=== PATIENT | male | born 1965 | race Caucasian/White ===

== ENCOUNTER 2020-12-22 21:16 | Observation (INO) ==
[2020-12-22] MEDS ORDERED: NS 1000 ML 1,000 ML IV STA (22:12)
--- NOTE | 2020-12-22 22:12 | DR.WEAKNES ---
HPI Time Seen Time Seen by Provider: 12/22/20 22:00 Primary Care Physician Primary Care Physician: Leydi Banks HPI Comment HPI Comment: DAUGHTER STATES PATIENT WITH A HISTORY OF CORONARY ARTERY DISEASE, COPD, HYPERTENSION COMPLAINS OF CONFUSION, WEAKNESS, UNSTEADY GAIT AND VISUAL CHANGES FOR 1-2 WEEKS. DENIES HEADACHE, SLURRED SPEECH, CHEST PAIN, COUGH FEVER, CHILLS, ARTHRALGIA. Complaints Chief Complaint Doctors Comments: WEAKNESS, CONFUSION, UNSTEADY GAIT Chief Complaint:: Confusion, weakness. States for the last 2 weeks he has to cover his Lt eye so that he can see normal. Pending pacemaker placement. Reviewed Nurses Notes Reviewed: Yes Source History Provided: Patient Mode of Arrival Mode of Arrival: Ambulatory Timing Onset of Chief Complaint: 12/08/20 Since onset, symptoms are:: Unchanged Symptom Onset: Unknown Onset of Symptoms Start Date: 12/10/20 Duration Duration: Constant Context Symptoms: Weakness Stroke Symptoms: Ataxia and Acute confusion (1-2 WEEKS) Location Weakness Location: Generalized PMH PMH Past Medical History: Yes Past Medical History: Cirrhosis and COPD Past Medical History Comment: cardiac issues, unsure Past Surgical History: No Family History History of Family Medical Conditions: Yes Family Medical History: [place] Social History Alcohol Use: DAILY Lives Where: Home Infectious screening Have you traveled outside the country in the last 6 months?: No Isolation: Standard ROS Review of Systems Constitutional: See HPI Eyes: See HPI and Other (VISUAL CHANGES) ENTM: No Symptoms Reported Respiratoy: No Symptoms Reported Cardiovascular: No Symptoms Reported Gastrointestinal/Abdominal: No Symptoms Reported Genitourinary: No Symptoms Reported Neurological: Weakness and Problems Walking Musculoskeletal: No Symptoms Reported Integumentary: No Symptoms Reported Hematologic/Lymphatic: No Symptoms Reported Endocrine: No Symptoms Reported Psychiatric: No Symptoms Reported All Other Systems: Reviewed and Negative PE Vital Signs Vitals: Temperature 97.9 F Pulse Rate [Apical] 85 Pulse Rate 114 Respiratory Rate 22 Blood Pressure [Left Arm] 92/63 Blood Pressure 104/66 O2 Sat by Pulse Oximetry 100 General Limitations: No Limitations General Appearance: Alert (TO PERSON AND PLACE, CONFUSION AT TIMES CONCERNING HISTORY OF EVENTS) and In No Apparent Distress Head Head Exam: Normal Inspection, Atraumatic and Normocephalic Eyes Eye exam: Normal Appearance, PERRL and EOMI Eyelids: Normal Inspection: Bilateral ENT ENT Exam: Normal Exam and Normal Oropharynx Mouth Exam: Normal Inspection Throat Exam: Normal Inspection Chest Chest Inspection: Normal Inspection and Symmetric Chest Wall Rise Respiratory Respiratory Exam: Normal Lung Sounds Bilat Respiratory Exam: Bilateral: Clear to Auscultation Cardiovascular Cardiovascular Exam: Normal Rhythm and Tachycardia Abdominal Exam Abdominal Exam: Normal Inspection and Normal Bowel Sounds Extremities Extremities Exam: Normal Inspection and Full ROM Neurologic Neurological Exam: Alert, Oriented X3, CN II-XII Intact and Other (ANTALGLIC GAIT, INTENTIONAL TREMOR, UPON FINGER TO NOSE AND HEEL TO RAMOS, NIH STROKE SCALE-1) Cranial Nerve Exam: EOM Function (II, III, IV, ): Normal, Facial Sensation (V): Normal, Facial Palsy (VII): Normal, Gag reflex (XI): Normal and Spinal Accessory Function (XI): Normal Cerebellar Function: Ataxic Gait Motor Strength - LUE: 4/5 Motor Strength - RUE: 4/5 Motor Strength - LLE: 4/5 Motor Strength - RLE: 4/5 Psychiatric Psychiatric Exam: Normal Affect and Normal Mood MDM Differential Diagnosis Differential Diagnosis: CVA and TIA COURSE Treatment Treatment: IV NORMAL SALINE 200ML/HR Consultation Call Returned: 00:52 Consultation Comments: DISCUSSED WITH DR LICEA FOR ADMIT TO OBSERVATION ROR Labs Reviewed Laboratory Results Reviewed?: Yes Result Diagrams: 12/22/20 23:11 12/22/20 23:11 Laboratory: WBC 5.9 X10^3/uL (3.6-10.0) 12/22/20 23:11 RBC 4.37 X10^6/uL (4.7-6.0) L 12/22/20 23:11 Hgb 15.0 g/dL (13.5-18.0) 12/22/20 23:11 Hct 43.6 % (42.0-54.0) 12/22/20 23:11 MCV 99.9 fL (80.0-100.0) 12/22/20 23:11 MCH 34.4 pg (27.0-34.0) H 12/22/20 23:11 MCHC 34.5 g/dL (33.0-35.0) 12/22/20 23:11 RDW 17.2 % (11.6-16.5) H 12/22/20 23:11 Plt Count 82 X10^3/uL (150.0-450.0) L 12/22/20 23:11 Plt Count Comment Decreased (ADEQUATE) 12/22/20 23:11 MPV 8.4 fL (7.4-11.0) 12/22/20 23:11 Neut % (Auto) 59.4 % (42.0-75.0) 12/22/20 23:11 Lymph % (Auto) 27.0 % (21.0-51.0) 12/22/20 23:11 Elk % (Auto) 10.1 % (0.0-13.0) 12/22/20 23:11 Eos % (Auto) 2.8 % (0.9-2.9) 12/22/20 23:11 Baso % (Auto) 0.7 % (0.2-1.0) 12/22/20 23:11 Neut # (Auto) 3.5 x10^3/uL (2.2-4.8) 12/22/20 23:11 Lymph # (Auto) 1.6 X10^3/uL (1.3-2.9) 12/22/20 23:11 Elk # (Auto) 0.6 x10^3/uL (0.3-0.8) 12/22/20 23:11 Eos # (Auto) 0.2 x10^3/uL (0.0-0.2) 12/22/20 23:11 Baso # (Auto) 0.0 X10^3/uL (0.0-0.1) 12/22/20 23:11 Absolute Nucleated RBC 0.2 /100WBC 12/22/20 23:11 Plt Morphology Comment Normal (NORMAL) 12/22/20 23:11 RBC Morphology Normal (NORMAL) 12/22/20 23:11 PT 12.5 SECONDS (11.8-14.3) 12/22/20 23:11 INR Target Range - 12/22/20 23:11 INR 0.98 (0.8-1.3) 12/22/20 23:11 Sodium 136 mmol/L (136-145) 12/22/20 23:11 Corrected Sodium TNP 12/22/20 23:11 Potassium 3.4 mmol/L (3.5-5.1) L 12/22/20 23:11 Chloride 98 mmol/L (98-107) 12/22/20 23:11 Carbon Dioxide 29.3 mmol/L (21-32) 12/22/20 23:11 BUN 23 mg/dL (7-18) H 12/22/20 23:11 Creatinine 1.10 mg/dL (0.70-1.30) 12/22/20 23:11 Est GFR (MDRD) Af Amer > 60 (>60) 12/22/20 23:11 Est GFR (MDRD) Non-Af > 60 (>60) 12/22/20 23:11 Glucose 90 mg/dL (65-99) 12/22/20 23:11 Calcium 9.3 mg/dL (8.5-10.1) 12/22/20 23:11 Corrected Calcium 9.9 mg/dL (8.5-10.1) 12/22/20 23:11 Total Bilirubin 1.10 mg/dL (0.2-1.0) H 12/22/20 23:11 AST 171 Units/L (15-37) H 12/22/20 23:11 ALT 121 Units/L (12-78) H 12/22/20 23:11 Alkaline Phosphatase 105 Units/L (46-116) 12/22/20 23:11 Troponin I 0.14 ng/mL (0-1.5) 12/22/20 23:11 Total Protein 6.9 g/dL (6.4-8.2) 12/22/20 23:11 Albumin 3.3 g/dL (3.4-5.0) L 12/22/20 23:11 Globulin 3.6 g/dL (2.5-4.5) 12/22/20 23:11 Albumin/Globulin Ratio 0.9 Ratio (1.1-2.1) L 12/22/20 23:11 Specimen Type Clean catch urine 12/23/20 00: Urine Color Giselle (YELLOW) 12/23/20 00: Urine Appearance Clear (CLEAR) 12/23/20 00: Urine pH 6.5 (5.0 - 8.0) 12/23/20 00:01 Ur Specific [place] 1.015 (1.000-1.030) 12/23/20 00:01 Urine Protein 1+ (NEGATIVE) 12/23/20 00: Urine Glucose (UA) Negative (NEGATIVE) 12/23/20 00:01 Urine Ketones Negative (NEGATIVE) 12/23/20 00:01 Urine Occult Blood Negative (NEGATIVE) 12/23/20 00:01 Urine Nitrite Negative (NEGATIVE) 12/23/20 00:01 Urine Bilirubin 1+ (NEGATIVE) 12/23/20 00:01 Urine Urobilinogen 2+ (NORMAL) 12/23/20 00:01 Ur Leukocyte Esterase Negative (NEGATIVE) 12/23/20 00:01 Urine RBC 0-2 /HPF (0-3) 12/23/20 00:01 Urine WBC None seen /HPF (0-5) 12/23/20 00:01 Ur Squamous Epith Cells Rare /HPF (NEGATIVE) 12/23/20 00:01 Urine Bacteria 1+ /HPF (NEGATIVE) 12/23/20 00:01 Urine Sperm Few /HPF (NEGATIVE) 12/23/20 00:01 Ur Culture Indicated? No/not indicated 12/23/20 00:01 SARS-CoV-2 (PCR) Negative (NEGATIVE) 12/22/20 22:56 Influenza Type A (PCR) Negative (NEGATIVE) 12/22/20 22:56 Influenza Type B (PCR) Negative (NEGATIVE) 12/22/20 22:56 RSV (PCR) Negative (NEGATIVE) 12/22/20 22:56 XRAY XRAY Interpreted by: Radiologist (HEAD CT SCAN NO ACUTE INTRACRANIAL AB NORMALITY) X-ray Results: PORTABLE CHEST XRAY- NO ACUTE PROCESS EKG Rate: 89 Rhythm: NSR ST: Nonsp (T-WAVE INVERSION INFERIOR LATERALLY) Opioid Opioid Risk Tool Age (Obi box if 16-45): No History of Preadolescent Sexual Abuse: No Total: 0 Total Score Risk Category: Low Risk Copyright: González SUTHERLAND predicting aberrant behaviors Diagnosis Discharge Problem: Transient ischemic attack, Altered mental status
[2020-12-22] MEDS ORDERED: NS 1000 ML 0 ML ONE (22:31)
[2020-12-22] MEDS ORDERED: NS 1000 ML 1,000 ML ONE (22:41)
--- NOTE | 2020-12-22 22:59 | CT ---
HISTORYConfusion, weakness. States for the last 2 weeks he has to cover his Lt eye so that he can see normal. Pending pacemaker placement.STUDYBRAIN W/O CONCOMPARISONApril 2019TECHNIQUEAxial non-contrast images of the head were obtained with coronal and sagittal reformats provided.Radiation dose: 1329.50 mGy-cm total DLPFINDINGSMild periventricular chronic microvascular disease.No abnormal areas of acute attenuation in the brain parenchyma.Alston-white differentiation remains intact.No intracranial, extra-axial, fluid collection.No hemorrhage.No mass, mass effect or midline shift.Age related brain parenchymal global atrophy.No ventriculomegaly.No acute fracture.Sinuses are well aerated.Mastoid air cells are well aerated.Globes and intra-orbital contents are unremarkable.IMPRESSIONNo acute intracranial abnormality identified.Electronically signed by: Tacos Olson (Dec 22, 2020 22:57:29)
--- NOTE | 2020-12-22 23:00 | RAD ---
HISTORYConfusion, weakness. States for the last 2 weeks he has to cover his Lt eye so that he can see normal. Pending pacemaker placement.STUDYCHEST, 1 VIEWCOMPARISONMay 2020TECHNIQUEChest radiographic imaging, AP portable projection, 1 imageFINDINGSNo cardiomegaly.No focal airspace disease.No pleural effusion.No pneumothorax.No acute osseous abnormality.IMPRESSIONNo imaging findings of acute cardiopulmonary disease.Electronically signed by: Tacos Olson (Dec 22, 2020 22:58:10)
[2020-12-22 23:19] LABS: BASOPHILS % (AUTO) 0.7 % (0.2-1.0); EOSINOPHILS # (AUTO) 0.2 x10^3/uL (0.0-0.2); EOSINOPHILS % (AUTO) 2.8 % (0.9-2.9); HEMATOCRIT 43.6 % (42.0-54.0); LYMPHOCYTES # (AUTO) 1.6 X10^3/uL (1.3-2.9); MEAN CORPUSCULAR HEMOGLOBIN 34.4 pg (27.0-34.0); MEAN CORPUSCULAR HGB CONC 34.5 g/dL (33.0-35.0); MEAN CORPUSCULAR VOLUME 99.9 fL (80.0-100.0); MEAN PLATELET VOLUME 8.4 fL (7.4-11.0); MONOCYTES # (AUTO) 0.6 x10^3/uL (0.3-0.8); MONOCYTES % (AUTO) 10.1 % (0.0-13.0); NEUTROPHILS # (AUTO) 3.5 x10^3/uL (2.2-4.8); NEUTROPHILS % (AUTO) 59.4 % (42.0-75.0); PLATELET COUNT 82 X10^3/uL (150.0-450.0); RED BLOOD COUNT 4.37 X10^6/uL (4.7-6.0); RED CELL DISTRIBUTION WIDTH 17.2 % (11.6-16.5); WHITE BLOOD COUNT 5.9 X10^3/uL (3.6-10.0)
[2020-12-22 23:34] LABS: ALANINE AMINOTRANSFERASE 121 Units/L (12-78); ALBUMIN 3.3 g/dL (3.4-5.0); ALKALINE PHOSPHATASE 105 Units/L (46-116); ASPARTATE AMINO TRANSFERASE 171 Units/L (15-37); BLOOD UREA NITROGEN 23 mg/dL (7-18); CALCIUM 9.3 mg/dL (8.5-10.1); CARBON DIOXIDE 29.3 mmol/L (21-32); CHLORIDE 98 mmol/L (98-107); COR CA(FOR HYPOALB) 9.9 mg/dL (8.5-10.1); SODIUM 136 mmol/L (136-145); TOTAL PROTEIN 6.9 g/dL (6.4-8.2); TROPONIN I 0.14 ng/mL (0-1.5); eGFR NON BLACK RACES > 60 (>60)
[2020-12-22 23:52] LABS: PLATELET MORPHOLOGY COMMENT NORMAL (NORMAL)
[2020-12-23 00:11] LABS: BILIRUBIN,URINE 1+ (NEGATIVE); BLOOD/HEMOGLOBIN,URINE NEGATIVE (NEGATIVE); GLUCOSE, URINE NEGATIVE (NEGATIVE); KETONES,URINE NEGATIVE (NEGATIVE); LEUKOCYTE ESTERASE ,URINE NEGATIVE (NEGATIVE); NITRITES,URINE NEGATIVE (NEGATIVE); PH,URINE 6.5 (5.0 - 8.0); PROTEIN,URINE 1+ (NEGATIVE); UROBILINOGEN,URINE 2+ (NORMAL)
[2020-12-23 00:22] LABS: APPEARANCE,URINE CLEAR (CLEAR); COLOR,URINE AMBER (YELLOW); RBC,URINE 0-2 /HPF (0-3)
[2020-12-23 00:23] LABS: BACTERIA,URINE 1+ /HPF (NEGATIVE); SPERM,URINE FEW /HPF (NEGATIVE); SQUAMOUS EPITHELIAL CELL,UR RARE /HPF (NEGATIVE)
[2020-12-23] MEDS ORDERED: ZOFRAN INJ 4 MG VIAL IVP PRN (01:14)
[2020-12-23] MEDS ORDERED: TYLENOL 325 MG TAB PO PRN (01:14)
[2020-12-23] MEDS ORDERED: POTASSIUM CHLORIDE LIQ 20 MEQ UDC PO PRN (03:06)
[2020-12-23] MEDS ORDERED: POTASSIUM CHL 40 MEQ/NS 0.45% 500 ML IV PRN (03:06)
[2020-12-23] MEDS ORDERED: KLOR-CON PO PRN (03:06)
[2020-12-23] MEDS ORDERED: MICRO K EXTEN CAP 10 MEQ PO PRN (03:06)
[2020-12-23] MEDS ORDERED: POTASSIUM CHL 60 MEQ/NS 0.45% 500 ML IV PRN (03:06)
[2020-12-23] MEDS ORDERED: MAGNESIUM SULFATE 1 GRAM/100 mL PREMIX 2 G/200 ML BAG IV ONE (03:24)
[2020-12-23] MEDS ORDERED: K-DUR TAB 20 MEQ PO ONE (03:24)
[2020-12-23] MEDS: K-DUR TAB 20 MEQ PO PRN (03:30)
[2020-12-23] MEDS: MAGNESIUM SULFATE 1 GRAM/100 mL PREMIX 1 GM/100 ML BAG IV PRN ×4 (03:30→06:30)
[2020-12-23] MEDS: NS 1000 ML 1,000 ML IV SCH ×3 (04:32→21:05)
[2020-12-23 06:13] LABS: HEMOGLOBIN 12.8 g/dL (13.5-18.0); WHITE BLOOD COUNT 4.4 X10^3/uL (3.6-10.0)
[2020-12-23 06:34] LABS: BASOPHILS # (AUTO) 0.1 X10^3/uL (0.0-0.1); BASOPHILS % (AUTO) 1.9 % (0.2-1.0); EOSINOPHILS # (AUTO) 0.1 x10^3/uL (0.0-0.2); EOSINOPHILS % (AUTO) 3.3 % (0.9-2.9); HEMATOCRIT 36.1 % (42.0-54.0); LYMPHOCYTES # (AUTO) 1.2 X10^3/uL (1.3-2.9); LYMPHOCYTES % (AUTO) 27.7 % (21.0-51.0); MEAN CORPUSCULAR HEMOGLOBIN 34.9 pg (27.0-34.0); MEAN CORPUSCULAR HGB CONC 35.4 g/dL (33.0-35.0); MEAN CORPUSCULAR VOLUME 98.7 fL (80.0-100.0); MEAN PLATELET VOLUME 8.5 fL (7.4-11.0); MONOCYTES # (AUTO) 0.4 x10^3/uL (0.3-0.8); MONOCYTES % (AUTO) 9.1 % (0.0-13.0); NEUTROPHILS # (AUTO) 2.6 x10^3/uL (2.2-4.8); PLATELET COUNT 134 X10^3/uL (150.0-450.0); RED BLOOD COUNT 3.66 X10^6/uL (4.7-6.0)
[2020-12-23 06:35] LABS: ALANINE AMINOTRANSFERASE 122 Units/L (12-78); ALKALINE PHOSPHATASE 91 Units/L (46-116); ASPARTATE AMINO TRANSFERASE 162 Units/L (15-37); BLOOD UREA NITROGEN 20 mg/dL (7-18); CALCIUM 9.1 mg/dL (8.5-10.1); CARBON DIOXIDE 30.9 mmol/L (21-32); CHLORIDE 99 mmol/L (98-107); COR CA(FOR HYPOALB) 9.9 mg/dL (8.5-10.1); CREATININE 1.02 mg/dL (0.70-1.30); SODIUM 135 mmol/L (136-145); TOTAL PROTEIN 6.3 g/dL (6.4-8.2); eGFR NON BLACK RACES > 60 (>60)
[2020-12-23 08:56] VITALS: BMI 17.7
[2020-12-23] MEDS ORDERED: MAGNESIUM SULFATE 1 GRAM/100 mL PREMIX 1 G/100 ML BAG IV SCH (10:07)
[2020-12-23] MEDS: ALDACTONE TAB 25 MG PO SCH (10:19)
[2020-12-23] MEDS: ASPIRIN EC 81 MG PO SCH (10:19)
[2020-12-23] MEDS: TOPROL XL PO SCH (10:19)
[2020-12-23] MEDS: PriLOSEC PO SCH (10:20)
[2020-12-23] MEDS: CRESTOR TAB 10 MG PO SCH (10:20)
[2020-12-23] MEDS: PLAVIX PO SCH (10:26)
[2020-12-23] MEDS: K-RIDER 10 MEQ/NS 100 ML 10 MEQ/100 ML BAG IV PRN ×3 (11:24→15:24)
[2020-12-23] MEDS: THIAMINE HCL INJ IVP SCH ×2 (14:20→20:52)
--- NOTE | 2020-12-23 14:58 | US ---
HISTORYTIA, AMS, ELEVATED TRANSAMINASESSTUDYLIVERCOMPARISONNone r.br.br.br the right upper quadrant were obtained.FINDINGSThe liver is echogenic but normal in size with a sagittal measurement of 14.7 cm.. No focal intraparenchymal mass or intrahepatic biliary ductal dilatation can be observed. T normal flow is seen in the hepatic veins the IVC the main portal vein and normal flow is also identified in the hepatic artery. He gallbladder fails to demonstrate evidence for cholelithiasis or layering sludge. The gallbladder however is contracted. The common bile duct is unremarkable measuring 3.6 mm. No pericholecystic fluid or gallbladder wall thickening can be observed .The right kidney appears normal in size without focal parenchymal mass or nephrolithiasis. The right kidney measurers 9.6 cm in length by 4.4 cm AP with a cortical thickness of 1.4 cm a transverse measurement of 4.5 cm with normal vascular flow and a resistance index of 0.74. . No hydronephrosis or perirenal fluid can be observed. The pancreatic head and body are poorly imaged. No mass or enlargement is observed. The tail the pancreas is obscured by overlying bowel gas.IMPRESSIONThe liver is echogenic but otherwise normal.The gallbladder is contracted but no stones are observed. The common duct is normal measuring 3.6 mm.The right kidney is normal.The pancreas is poorly imaged due to overlying bowel gas.Electronically signed by: DANIELLE MARTEL (Dec 23, 2020 14:56:42)
[2020-12-24] MEDS: NS 1000 ML 1,000 ML IV SCH ×2 (01:12→06:03)
[2020-12-24 06:07] LABS: BASOPHILS # (AUTO) 0.1 X10^3/uL (0.0-0.1); LYMPHOCYTES # (AUTO) 1.1 X10^3/uL (1.3-2.9); MEAN PLATELET VOLUME 8.1 fL (7.4-11.0); MONOCYTES # (AUTO) 0.4 x10^3/uL (0.3-0.8); NEUTROPHILS % (AUTO) 63.1 % (42.0-75.0); PLATELET COUNT 115 X10^3/uL (150.0-450.0); WHITE BLOOD COUNT 4.7 X10^3/uL (3.6-10.0)
[2020-12-24 06:33] LABS: ALANINE AMINOTRANSFERASE 94 Units/L (12-78); ALBUMIN 2.3 g/dL (3.4-5.0); ALKALINE PHOSPHATASE 92 Units/L (46-116); ASPARTATE AMINO TRANSFERASE 105 Units/L (15-37); BLOOD UREA NITROGEN 17 mg/dL (7-18); CALCIUM 7.5 mg/dL (8.5-10.1); CHLORIDE 104 mmol/L (98-107); COR CA(FOR HYPOALB) 8.9 mg/dL (8.5-10.1); CREATININE 0.94 mg/dL (0.70-1.30); MAGNESIUM 1.5 mg/dL (1.7-2.9); SODIUM 136 mmol/L (136-145); TOTAL PROTEIN 4.9 g/dL (6.4-8.2); eGFR NON BLACK RACES > 60 (>60)
[2020-12-24 07:07] LABS: BASOPHILS % (AUTO) 1.3 % (0.2-1.0); EOSINOPHILS # (AUTO) 0.1 x10^3/uL (0.0-0.2); EOSINOPHILS % (AUTO) 3.1 % (0.9-2.9); HEMATOCRIT 30.3 % (42.0-54.0); HEMOGLOBIN 10.7 g/dL (13.5-18.0); MEAN CORPUSCULAR HEMOGLOBIN 34.7 pg (27.0-34.0); MEAN CORPUSCULAR HGB CONC 35.2 g/dL (33.0-35.0); MEAN CORPUSCULAR VOLUME 98.7 fL (80.0-100.0); MONOCYTES % (AUTO) 8.5 % (0.0-13.0); NEUTROPHILS # (AUTO) 2.9 x10^3/uL (2.2-4.8); RED BLOOD COUNT 3.07 X10^6/uL (4.7-6.0); RED CELL DISTRIBUTION WIDTH 16.9 % (11.6-16.5)
[2020-12-24] MEDS: PLAVIX PO SCH (08:38)
[2020-12-24] MEDS: MAGNESIUM SULFATE 1 GRAM/100 mL PREMIX 1 GM/100 ML BAG IV PRN ×2 (08:38→11:16)
[2020-12-24] MEDS: CRESTOR TAB 10 MG PO SCH (08:39)
[2020-12-24] MEDS: PriLOSEC PO SCH (08:39)
[2020-12-24] MEDS: THIAMINE HCL INJ IVP SCH (08:39)
[2020-12-24] MEDS: ASPIRIN EC 81 MG PO SCH (08:39)
[2020-12-24] MEDS: ALDACTONE TAB 25 MG PO SCH (08:39)
[2020-12-24] MEDS: K-DUR TAB 20 MEQ PO PRN (08:39)
[2020-12-24] MEDS: TOPROL XL PO SCH (08:40)
[2020-12-24 10:02] VITALS: BP 97/59
== END 2020-12-24 12:55 | disposition home or self-care (01) ==
LOC: MED/SURG 21:23 → ER 21:23 → MED/SURG 12-23 01:58
PROVIDERS: ADMIT Family Medicine; ATTEND Obstetrics & Gynecology Obstetrics
DX: K70.30 Alcoholic cirrhosis of liver without ascites; R94.5 Abnormal results of liver function studies; R41.82 Altered mental status, unspecified; E87.1 Hypo-osmolality and hyponatremia; J44.9 Chronic obstructive pulmonary disease, unspecified; R94.31 Abnormal electrocardiogram [ECG] [EKG]; R26.81 Unsteadiness on feet; Z20.822 Contact with and (suspected) exposure to COVID-19; I25.10 Atherosclerotic heart disease of native coronary artery without angina pectoris; G45.8 Other transient cerebral ischemic attacks and related syndromes; E87.6 Hypokalemia; I10 Essential (primary) hypertension; E51.2 Wernicke's encephalopathy